=== PATIENT | male | born 1970 | race Hispanic/Latino ===

== ENCOUNTER 2018-02-21 14:32 | Emergency (ER) | payer MEDICAID ==
[2018-02-21 14:38] VITALS: BMI 32.5
[2018-02-21 14:53] VITALS: RESP 18; TEMP 97.8
--- NOTE | 2018-02-21 15:03 | ED PDOC ---
Arrival/HPI - General Chief Complaint: Chest Pain Time Seen by Provider: 02/21/18 14:44 Historian: Patient - History of Present Illness Narrative History of Present Illness (Text): 02/21/18 14:45 Ld Davison is a 47 year old male, with no significant past medical history, who presents to the emergency department complaining of sharp shooting pain down the entire right arm since the morning of 02/17/18. Patient states the pain started between his shoulder blades and radiated to his right shoulder on 02/18/18. Patient notes he feels numbness/tingling from right elbow down. Patient states he was seen by PMD and given muscle relaxant, steroids, and tylenol with no significant relief. Patient states he cannot get comfortable and movement of head exacerbates pain. Patient denies any fevers, chills, chest pain, shortness of breath, abdominal pain, nausea, vomiting, diarrhea, back pain , urinary symptoms, headache, dizziness, or any other complaint. Time/Duration: Other (4 days ago) Symptom Onset: Sudden, Gradual Symptom Course: Unchanged Quality: Aching, Stabbing, Other (Sharp, shooting) Activities at Onset: Light Past Medical History - Provider Review Nursing Documentation Reviewed: Yes - Infectious Disease Hx of Infectious Diseases: None - Past Medical History Past Medical History: No Previous - Gastrointestinal Hx Gastrointestinal Disorders: Yes Hx Diverticulitis: Yes - Psychiatric Hx Psychophysiologic Disorder: No Hx Anxiety: No Hx Bipolar Disorder: No Hx Depression: No Hx Emotional Abuse: No Hx Hallucinations: No Hx Panic Disorder: No Hx Post Traumatic Stress Disorder: No Hx Psychosis: No Hx Physical Abuse: No Hx Schizophrenia: No Hx Sexual Abuse: No Hx Substance Use: No (cocaine before) - Anesthesia Hx Anesthesia: No Hx Anesthesia Reactions: No Hx Malignant Hyperthermia: No Family/Social History - Physician Review Nursing Documentation Reviewed: Yes Family/Social History: No Known Family HX Smoking Status: Current Some Days Smoker Hx Alcohol Use: Yes Hx Substance Use: No (cocaine before) Allergies/Home Meds Allergies/Adverse Reactions: Allergies No Known Allergies Allergy (Verified 03/29/14 03:42) Home Medications: Home Meds Medication Instructions Recorded Confirmed Muscle Relaxant 1 tbs PO PRN PRN 02/21/18 Review of Systems - Physician Review All systems were reviewed & negative as marked: Yes - Review of Systems Constitutional: Normal. absent: Fevers Eyes: Normal ENT: Normal Respiratory: Normal. absent: SOB, Cough Cardiovascular: Normal. absent: Chest Pain Gastrointestinal: Normal. absent: Abdominal Pain, Diarrhea, Nausea, Vomiting Genitourinary Male: Normal Musculoskeletal: Myalgias (numbness/tingling from right elbow down), Other ( pain exacerbated with movement of head) Skin: Normal Neurological: absent: Headache, Dizziness Endocrine: Normal Hemo/Lymphatic: Normal Psychiatric: Normal Physical Exam Vital Signs Reviewed: Yes Vital Signs Temp Pulse Resp BP Pulse Ox 02/21/18 18:07 97.8 F 75 18 121/77 96 02/21/18 17:10 73 18 121/77 96 02/21/18 14:38 97.8 F 80 18 133/79 97 Temperature: Afebrile Blood Pressure: Normal Pulse: Regular Respiratory Rate: Normal Appearance: Positive for: Well-Appearing, Non-Toxic, Comfortable Pain Distress: Mild Mental Status: Positive for: Alert and Oriented X 3 - Systems Exam Head: Present: Atraumatic, Normocephalic Pupils: Present: PERRL Extroacular Muscles: Present: EOMI Conjunctiva: Present: Normal Mouth: Present: Moist Mucous Membranes Neck: Present: Other (pain worsened when head/cervical spine extended) Respiratory/Chest: Present: Clear to Auscultation, Good Air Exchange. No: Respiratory Distress, Accessory Muscle Use Cardiovascular: Present: Regular Rate and Rhythm, Normal S1, S2. No: Murmurs Abdomen: No: Tenderness, Distention, Peritoneal Signs Back: Present: Normal Inspection Upper Extremity: Present: Normal Inspection. No: Cyanosis, Edema Lower Extremity: Present: Normal Inspection. No: Edema Neurological: Present: GCS=15, CN II-XII Intact, Speech Normal Skin: Present: Warm, Dry, Normal Color. No: Rashes Psychiatric: Present: Alert, Oriented x 3, Normal Insight, Normal Concentration Medical Decision Making ED Course and Treatment: 02/21/18 14:40 Impression: 47 year old male presents to the emergency department for mid upper chest, below the neck pain for past few days. Plan: -- Labs -- EKG -- X-Ray of chest -- Reassess and disposition Prior Visits: Notes and results from previous visits were reviewed. Patient was last seen in the emergency department on Progress Notes: EKG: Ordered, reviewed, and independently interpreted the EKG. Rate : 86 BPM Rhythm : NSR Interpretation : No ST-segment elevations or depressions, no T-wave inversions, normal intervals. Prolonged QT. 02/21/18 15:25 Chest X-Ray reviewed by radiologist, shows: Report Date : 02/21/2018 15:24:19 Creator : Jori Mccullough MD Dictator : Jori Mccullough MD [employer] Supervisor : Jori Mccullough MD FINDINGS: LUNGS: No active pulmonary disease. PLEURA: No significant pleural effusion identified, no pneumothorax apparent. CARDIOVASCULAR: Normal. OSSEOUS STRUCTURES: No significant abnormalities. VISUALIZED UPPER ABDOMEN: Normal. OTHER FINDINGS: None. IMPRESSION: No active disease. - Lab Interpretations Lab Results: 02/21/18 15:50 02/21/18 15:50 Lab Results 02/21/18 15:50: Sodium 142, Potassium 4.2, Chloride 107, Carbon Dioxide 24, Anion Gap 15, BUN 19, Creatinine 0.7 L, Est GFR ( Amer) > 60, Est GFR ( Non-Af Amer) > 60, Random Glucose 123 H, Calcium 8.9, Phosphorus 2.5, Magnesium 2.2, Total Bilirubin 0.5, AST 30, ALT 44, Alkaline Phosphatase 71, Lactate Dehydrogenase 344, Total Creatine Kinase 121, Troponin I < 0.01, Total Protein 7.5, Albumin 4.4, Globulin 3.1, Albumin/Globulin Ratio 1.4 02/21/18 15:50: PT 10.5, INR 0.92, D-Dimer, Quantitative < 200 02/21/18 15:50: WBC 12.3 H D, RBC 4.56, Hgb 14.8, Hct 41.8 L, MCV 91.7, MCH 32.5 , MCHC 35.4, RDW 13.2, Plt Count 301, MPV 10.5, Gran % 76.0 H, Lymph % (Auto) 16.3 L, [place] % (Auto) 6.9 H, Eos % (Auto) 0.6 L, Baso % (Auto) 0.2, Gran # 9.33 H, Lymph # (Auto) 2.0, [place] # (Auto) 0.9 H, Eos # (Auto) 0.1, Baso # (Auto) 0.02 - RAD Interpretation Radiology Orders: 02/21/18 14:49 CHEST PORTABLE [RAD] Stat 02/21/18 15:07 CERVICAL SPINE W/O CONTRAST [CT] Stat [employer]: Radiologist - EKG Interpretation Interpreted by ED Physician: Yes Type: 12 lead EKG - Medication Orders Current Medication Orders: Discontinued Medications Diazepam (Valium) 5 mg PO ONCE ONE PRN Reason: Protocol Stop: 02/21/18 15:09 Last Admin: 02/21/18 15:51 Dose: 5 mg Ibuprofen (Motrin Tab) 800 mg PO STAT STA Stop: 02/21/18 15:09 Last Admin: 02/21/18 15:51 Dose: 800 mg Pregabalin (Lyrica) 100 mg PO STAT STA Stop: 02/21/18 15:09 Last Admin: 02/21/18 16:27 Dose: 100 mg - Scribe Statement The provider has reviewed the documentation as recorded by the Mirianibe Geovanna Mason All medical record entries made by the Mirianibroman were at my direction and personally dictated by me. I have reviewed the chart and agree that the record accurately reflects my personal performance of the history, physical exam, medical decision making, and the department course for this patient. I have also personally directed, reviewed, and agree with the discharge instructions and disposition. Disposition/Present on Arrival - Present on Arrival Any Indicators Present on Arrival: No History of DVT/PE: No History of Uncontrolled Diabetes: No Urinary Catheter: No History of Decub. Ulcer: No History Surgical Site Infection Following: None - Disposition Have Diagnosis and Disposition been Completed?: Yes Diagnosis: Left against medical advice, Cervical radiculopathy, Chest pain Disposition: LEFT W/O TREATMENT - ER ONLY Disposition Time: 18:19 (ELOPED BEFORE PAPERWORK, RIPPED OUT HIS OWN IV) Patient Plan: Other (ELOPED/AMA) Condition: FAIR Discharge Instructions (ExitCare): Chest Pain (ED) Referrals: Nupur Kirkland MD [Primary Care Provider] - Follow up with primary Forms: IMANIN (Maltese)
--- NOTE | 2018-02-21 15:25 | RAD ---
Date of service: 02/21/2018 HISTORY: chest pain COMPARISON: 04/24/2015 FINDINGS: LUNGS: No active pulmonary disease. PLEURA: No significant pleural effusion identified, no pneumothorax apparent. CARDIOVASCULAR: Normal. OSSEOUS STRUCTURES: No significant abnormalities. VISUALIZED UPPER ABDOMEN: Normal. OTHER FINDINGS: None. IMPRESSION: No active disease.
[2018-02-21 16:14] LABS: BASO # 0.02 K/mm3 (0.0-2.0); BASO % 0.2 % (0.0-3.0); EOS # 0.1 (0.0-0.7); EOS % 0.6 % (1.5-5.0); GRAN # 9.33 (1.4-6.5); HEMOGLOBIN 14.8 g/dL (14.0-18.0); LYMPH % 16.3 % (22.0-35.0); MEAN CELL VOLUME 91.7 fl (80.0-105.0); MEAN CORPUSCULAR HEMOGLOBIN 32.5 pg (25.0-35.0); MEAN CORPUSCULAR HGB CONC 35.4 g/dl (31.0-37.0); MEAN PLATELET VOLUME 10.5 fl (7.0-11.0); MONO # 0.9 (0.1-0.6); MONO % 6.9 % (1.0-6.0); RBC 4.56 10^6/uL (3.5-6.1); RED CELL DISTRIBUTION WIDTH 13.2 % (11.5-14.5); WHITE BLOOD COUNT 12.3 10^3/ul (4.5-11.0)
[2018-02-21 16:20] LABS: INR 0.92
[2018-02-21 16:25] LABS: ALB/GLOB RATIO 1.4 (1.1-1.8); ALBUMIN 4.4 g/dL (3.0-4.8); ALT/SGPT 44 U/L (7-56); AST/SGOT 30 U/L (17-59); BLOOD UREA NITROGEN 19 mg/dL (7-21); CALCIUM 8.9 mg/dL (8.4-10.5); GFR AFRICAN-AMERICAN > 60; GFR NON-AFRICAN AMERICAN > 60
[2018-02-21 16:35] LABS: TROPONIN I < 0.01 ng/mL
[2018-02-21 17:21] VITALS: BP 121/77; O2SAT 96
[2018-02-21 18:08] VITALS: PULSE 75
--- NOTE | 2018-02-22 14:17 | CARD ---
APPROVED REPORT Date of service: 02/21/2018 EKG Measurement Heart [id number] <Conclusion> Normal sinus rhythm Minimal voltage criteria for LVH, may be normal variant Prolonged QT Abnormal ECG
[2018-02-23 14:27] LABS: D DIMER < 200 ng/mL; PROTHROMBIN TIME 10.5 SECONDS (9.4-12.5)
== END 2018-02-21 18:08 | disposition left against medical advice (07) ==
LOC: ED 14:32
DX: R07.9 Chest pain, unspecified (principal); M54.12 Radiculopathy, cervical region